=== PATIENT | female | born 1940 | race Two or more races ===

== ENCOUNTER 2016-11-21 12:28 | Emergency (ER) | payer MEDICARE, MEDICAID ==
[~2016-11-21] VITALS: Ht 157.5 cm; Wt 59.9 kg
[~2016-11-21 12:28] MED LIST: BENICAR20 MG ORAL; BONIVA150 MG ORAL; CELEBREX200 MG ORAL; CRESTOR10 M1 ORAL; METFORMIN HCL1000 M1 ORAL; OXAZEPAM10 MG PO
--- NOTE | 2016-11-21 13:18 | Emergency Room Report ---
History of Present Illness General Chief Complaint: Upper Respiratory Illness Source: Patient Present Illness HPI Patient presents with complaints of cough and congestion ongoing since last week Patient reports being on Levaquin since last Wednesday however as the cough has persisted she was concerning came to the ER She feels that her lower rib cage is also spasm Denies any vomiting or diarrhea She has increased chills no obvious fevers Patient's and daughter are ill with similar upper respiratory complaints Allergies: Coded Allergies: No Known Allergies (Unverified , 07/31/14) Patient History Past Medical History: see triage record Pertinent Family History: none Reviewed Nursing Documentation: PMH: Agreed, PSxH: Agreed Nursing Documentation-PMH Past Medical History: No History, Except For Hx Hypertension: Yes Hx Diabetes: Yes Hx Cancer: No Hx Gastrointestinal Problems: No Hx Neurological Problems: No Review of Systems All Other Systems: negative except mentioned in HPI Physical Exam Vital Signs Date Time Temp Pulse Resp B/P Pulse Ox O2 Delivery O2 Flow Rate FiO2 11/21/16 12:41 97.9 97 16 120/73 98 Room Air Sp02 EP Interpretation: reviewed, normal General Appearance: no apparent distress - However the patient is actively coughing Head: normocephalic, atraumatic Eyes: bilateral eye EOMI, bilateral eye PERRL ENT: hearing grossly normal, normal pharynx, TMs + canals normal, uvula midline Neck: full range of motion, supple, no meningismus, no bony tend Respiratory: lungs clear, normal breath sounds, no rhonchi, no respiratory distress, no retraction, no accessory muscle use Cardiovascular #1: normal peripheral pulses, regular rate, rhythm, no edema, no gallop, no JVD, no murmur Gastrointestinal: normal bowel sounds, non tender, soft, no mass, no organomegaly, non-distended, no guarding, no hernia, no pulsatile mass, no rebound Genitourinary: no CVA tenderness Musculoskeletal: normal inspection Neurologic: oriented x3, responsive, shearer helper III-XII nml as tested, motor strength/ tone normal, sensory intact Psychiatric: mood/affect normal Skin: normal color, no rash, warm/dry, palpation normal Lymphatic: normal inspection, no adenopathy Medical Decision Making Diagnostic Impression: Primary Impression: Pneumonia ER Course Given patient's presentation multiple differentials were considered Including but not limited to pneumonia, influenza Patient's x-ray shows some atelectasis/early pneumonia left lower lobe Patient was offered further blood work and admission to the hospital however she states that she would like to attempt outpatient process Patient's Levaquin was increased to be 750 mg dose Patient remained hemodynamically stable and will have continued outpatient trial Chest X-Ray Diagnostic Results EP Interpretation: Yes Findings: no effusion, no pneumothorax, other - Left lower lobe atelectasis/ possible infiltrate Number of Views: 1 Last Vital Signs Date Time Temp Pulse Resp B/P Pulse Ox O2 Delivery O2 Flow Rate FiO2 11/21/16 12:53 97 16 Room Air 11/21/16 12:41 97.9 120/73 98 Status: improved Disposition: HOME, SELF-CARE Condition: Improved Scripts Oseltamivir Phosphate (Tamiflu) 75 Mg Capsule 75 MG ORAL TWICE A DAY for 5 Days, CAP Prov: TACO HENSON D.O. 11/21/16 Levofloxacin* (LEVAQUIN*) 750 Mg Tablet 750 MG ORAL DAILY for 7 Days, TAB Prov: TACO HENSON D.O. 11/21/16 Azithromycin* (ZITHROMAX*) 250 Mg Tablet 250 MG ORAL DAILY, #6 TAB 0 Refills Take two tablets by mouth today, then take one tablet by mouth daily for four days Prov: TACO HENSON D.O. 11/21/16 Promethazine HCl/Codeine (Prometh-Codein 6.25-10 mg/5 ml) 5 Ml Syrup 5 ML PO Q12HR for 7 Days, ML Prov: TACO HENSON D.O. 11/21/16 Additional Instructions: Patient is provided with the discharge instructions notified to follow up with primary doctor in the next 2-3 days otherwise return to the er with any worsening symptoms. Please note that this report is being documented using [employer] technology. This can lead to erroneous entry secondary to incorrect interpretation by the dictating instrument. TACO HENSON D.O. Nov 21, 2016 13:18
[2016-11-21] MEDS ORDERED: PROMETH-CODEIN 65 ML PO (13:29)
[2016-11-21] MEDS ORDERED: AZITHROMYCIN250 MG ORAL (13:29)
[2016-11-21] MEDS ORDERED: LEVAQUIN750 MG ORAL (13:57)
[2016-11-21] MEDS ORDERED: TAMIFLU75 MG ORAL (13:57)
[2016-11-21 14:00] VITALS: BP 120/73
[2016-11-21 14:05] VITALS: BP 120/73
--- NOTE | 2016-11-22 08:33 | Diagnostic Imaging Report ---
Clinical history: Cuff. Technique: Portable AP chest radiograph was obtained. Comparison: None Findings: Platelike opacity at the left lung base likely reflects atelectasis. There is no pneumonia or pulmonary edema. There is no pleural effusion or pneumothorax. The cardiac and mediastinal silhouettes are normal in appearance. The bony thorax is unremarkable. Impression: Suspected left lower lobe atelectasis. No acute cardiopulmonary process.
== END 2016-11-21 14:05 | disposition home or self-care (01) ==
LOC: EMR 13:15
DX: J18.9 Pneumonia, unspecified organism (principal); I10 Essential (primary) hypertension; E11.9 Type 2 diabetes mellitus without complications
CPT/HCPCS: 71010; 99284